=== PATIENT | female | born 1990 | race American Indian/Alaskan Native ===

== ENCOUNTER 2022-03-21 13:59 | Outpatient (CLI) | payer MEDICAID ==
[2022-03-21 14:48] VITALS: BP 127/72
== END 2022-03-21 20:04 | disposition home or self-care (01) ==
LOC: TRG 13:59 → APU 13:59 → TRG 20:04
PROVIDERS: ATTEND Obstetrics & Gynecology
DX: O62.9 Abnormality of forces of labor, unspecified (principal); O48.0 Post-term pregnancy; Z3A.40 40 weeks gestation of pregnancy
CPT/HCPCS: 59025; Q0177

== ENCOUNTER 2022-03-22 20:36 | Outpatient (CLI) | payer MEDICAID ==
[2022-03-22 21:00] VITALS: BP 117/76
[2022-03-22] MEDS ORDERED: ACETAMINOPHEN W/CODEINE 300-30 MG TAB PO ONE (21:59)
== END 2022-03-22 22:28 | disposition home or self-care (01) ==
LOC: APU 20:36 → TRG 20:36
PROVIDERS: ATTEND Obstetrics & Gynecology
DX: O62.9 Abnormality of forces of labor, unspecified (principal); O48.0 Post-term pregnancy; O99.013 Anemia complicating pregnancy, third trimester; D62 Acute posthemorrhagic anemia; Z3A.40 40 weeks gestation of pregnancy

== ENCOUNTER 2022-03-24 09:48 | Inpatient (IN) | payer MEDICAID ==
[2022-03-24] MEDS ORDERED: TERBUTALINE 1 MG/1 ML INJ SUB-Q NR (09:54)
[2022-03-24] MEDS ORDERED: fentaNYL 100 MCG/2 ML INJ IV PRN (09:54)
[2022-03-24] MEDS ORDERED: OXYTOCIN 10 UNIT/1 ML INJ IM NR (09:54)
--- NOTE | 2022-03-24 09:57 | History and Physical Report ---
History of Present Illness Date of examination: 03/24/22 Chief complaint: Sent from office in labor History of present illness: EDC Calculations LMP: 03/21/2022 Past History : 3 Term Births: 0 Premature Births: 0 Living Children: 0 Para: 0 Mult. Births: 0 Prev : 0 Prev. attempt? 0 Aborta: 2 Elect. Ab: 1 Spont. Ab: 1 Ectopics: 0 # 1 Delivery date: 10/21/2009 Weeks Gestation: 6 Comments: suction d and c. # 2 Delivery date: 04/14/2021 Delivery type: SAB Comments: misoprostol Past Medical History: Reviewed history from 07/26/2019 and no changes required: obesity Hyperlipidemia Asthma Past Surgical History: Reviewed history from 11/19/2014 and no changes required: D&C: Family History Summary: Reviewed history Last on 01/27/2021 and no changes required:07/28/2021 Daughter - Has Family History of Hyperlipidemia - father, PGM - Entered On: 11/19/2014 Risk Factors: Smoked Tobacco Use: Never smoker Smokeless Tobacco Use: Never Passive Smoke Exposure: no HIV High Risk Behavior: no Seatbelt Use: 100 % Alcohol Use: no Drug Use: no Past Medical History 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): D&C: Abnormal PAP: negative NOHEMY Exposure: negative Infertility: negative Uterine Anomaly: negative Uterine Surgery (not C/S): negative Social Hx: Patient is single Smoking History: CVD daily Infection History HIV Risk Eval: no Genetic History Congenital Heart Defect: Mom: no Dad: no Winston Disease: Mom: no Dad: no Thalassemia Mom: no Dad: no Neural Tube Defect Mom: no Dad: no Down's Syndrome Mom: no Dad: no Acosta-Sachs Mom: no Dad: no Sickle Cell Disease/Trait Mom: no Dad: no Hemophilia Mom: no Dad: no Muscular Dystrophy Mom: no Dad: no Cystic Fibrosis Mom: no Dad: no [place] Chorea Mom: no Dad: no Mental Retardation Mom: no Dad: no Fragile X Mom: no Dad: no Other Genetic/Chromosomal Disorder Mom: no Dad: no Child w/other defect Mom: no Dad: no Enviromental Exposures Xray Exposure: no Medication, drug, or alcohol use since LMP: no Chemical/Other Exposure: no Exposure to Cat Liter: no Hx of Parvovirus (Fifth Disease): no Occupational Exposure to Children: none Active Medications (reviewed today): ibuprofen 800 mg tablet (ibuprofen) Take 1 tablet by mouth every six hours TYLENOL () Current Allergies (reviewed today): No known allergies Past History Past Medical History: other (See HPI) Past Surgical History: other (See HPI) [employer] History: other (See HPI) Family/Genetic History: other (See HPI) Social history: other (See HPI) - Obstetrical History Expected Date of Delivery: 03/21/22 Actual Gestation: 40 Week(s) 3 Day(s) : 2 Para: 0 Hx # Term Pregnancies: 0 Number of Pregnancies: 0 Spontaneous Abortions: 1 Induced : 0 Number of Living Children: 0 Medications and Allergies Allergies Allergy/AdvReac Type Severity Reaction Status Date / Time No Known Allergies Allergy Verified 04/18/14 22:12 Home Medications Medication Instructions Recorded Confirmed Last Taken Type Albuterol Mdi (or & Nicu Only) 2 puff IH QID PRN #1 inhalation 04/19/14 Unknown Rx [ProAir HFA Inhaler] Amoxicillin [Trimox CAP] 500 mg PO Q8H #30 capsule 04/19/14 Unknown Rx Prednisone [Prednisone 10 mg 10 mg PO .TAPER #1 tab.ds.pk 04/19/14 Unknown Rx (6-Day Pack, 21 Tabs)] Review of Systems All systems: negative Gastrointestinal: other (CTX) - Physical Exam Breasts: Positive: normal Cardiovascular: Regular rate Lungs: Positive: Normal air movement Abdomen: Positive: normal appearance, soft Genitourinary (Female): Positive: normal external genitalia Vulva: both: normal Vagina: Positive: normal moisture Uterus: Positive: other (Gravid ) Anus/Rectum: Positive: normal perianal skin Extremities: Positive: normal Deep Tendon Reflex Grade: Normal +2 - Obstetrical FHR: category 1 Uterine Contraction Monitor Mode: Palpation Cervical Dilatation: 4 Cervical Effacement Percentage: 80 station: -2 Uterine Contraction Frequency (min): 5 Uterine Contraction Duration: 60-90 Uterine Contraction Pattern: Regular Uterine Tone Measurement Phase: Resting Uterine Contraction Intensity: Moderate Results All other labs normal. Assessment and Plan Pt presents to office in labor. GBS neg. Direct admit. admission orders in EMR. - Patient Problems (1) 40 weeks gestation of Current Visit: Yes Status: Acute Plan to address problem: Epidural PRN for pain Anticipate .
[2022-03-24] MEDS ORDERED: fentaNYL 100 MCG/2 ML INJ ONE (10:53)
[2022-03-24] MEDS ORDERED: LACTATED RINGERS 1,000 ML ONE (10:53)
[2022-03-24] MEDS ORDERED: ACETAMINOPHEN 325 MG TAB PO PRN (11:00)
[2022-03-24] MEDS ORDERED: CARBOPROST TROMETHAMINE 250 MCG/1 ML INJ IM PRN (11:00)
[2022-03-24] MEDS: LACTATED RINGERS 1,000 ML IV SCH ×4 (11:00→17:41)
[2022-03-24] MEDS ORDERED: ePHEDrine SULFATE 50 MG/1 ML INJ IV PRN (11:30)
[2022-03-24] MEDS ORDERED: LIDOCAINE (2%) 20 MG/1 ML VIAL 20 ML MDV INFILTRATI NR (11:30)
[2022-03-24] MEDS ORDERED: miSOPROStol 200 MCG TAB PR NR (11:30)
[2022-03-24] MEDS ORDERED: LOPERAMIDE 2 MG CAP PO PRN (12:00)
[2022-03-24] MEDS ORDERED: METHYLERGONOVINE MALEATE 0.2 MG/ML VIAL IM PRN (12:00)
[2022-03-24] MEDS ORDERED: NalbUPHINE 10 MG/1 ML INJ IV PRN (12:00)
[2022-03-24] MEDS ORDERED: OXYTOCIN DRIP 30 UNITS/500 ML BAG IV SCH ×3 (12:00→16:43)
[2022-03-24] MEDS ORDERED: ONDANSETRON 4 MG/2 ML INJ IV PRN (12:00)
--- NOTE | 2022-03-24 13:02 | Progress Note ---
Assessment and Plan IVF open for bolus, waiting on lab results for epidural. Plan of care discussed, pt agreed to AROM. will reexamine PRN. - Patient Problems (1) 40 weeks gestation of Current Visit: Yes Status: Acute Subjective - Subjective Date of service: 03/24/22 Principal diagnosis: IUP @ 40+3, laboring Interval history: EDC Calculations LMP: 03/21/2022 Past History : 3 Term Births: 0 Premature Births: 0 Living Children: 0 Para: 0 Mult. Births: 0 Prev : 0 Prev. attempt? 0 Aborta: 2 Elect. Ab: 1 Spont. Ab: 1 Ectopics: 0 # 1 Delivery date: 10/21/2009 Weeks Gestation: 6 Comments: suction d and c. # 2 Delivery date: 04/14/2021 Delivery type: SAB Comments: misoprostol Past Medical History: Reviewed history from 07/26/2019 and no changes required: obesity Hyperlipidemia Asthma Past Surgical History: Reviewed history from 11/19/2014 and no changes required: D&C: Family History Summary: Reviewed history Last on 01/27/2021 and no changes required:07/28/2021 Daughter - Has Family History of Hyperlipidemia - father, PGM - Entered On: 11/19/2014 Risk Factors: Smoked Tobacco Use: Never smoker Smokeless Tobacco Use: Never Passive Smoke Exposure: no HIV High Risk Behavior: no Seatbelt Use: 100 % Alcohol Use: no Drug Use: no Past Medical History 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): D&C: Abnormal PAP: negative NOHEMY Exposure: negative Infertility: negative Uterine Anomaly: negative Uterine Surgery (not C/S): negative Social Hx: Patient is single Smoking History: CVD daily Infection History HIV Risk Eval: no Genetic History Congenital Heart Defect: Mom: no Dad: no Winston Disease: Mom: no Dad: no Thalassemia Mom: no Dad: no Neural Tube Defect Mom: no Dad: no Down's Syndrome Mom: no Dad: no Acosta-Sachs Mom: no Dad: no Sickle Cell Disease/Trait Mom: no Dad: no Hemophilia Mom: no Dad: no Muscular Dystrophy Mom: no Dad: no Cystic Fibrosis Mom: no Dad: no [place] Chorea Mom: no Dad: no Mental Retardation Mom: no Dad: no Fragile X Mom: no Dad: no Other Genetic/Chromosomal Disorder Mom: no Dad: no Child w/other defect Mom: no Dad: no Enviromental Exposures Xray Exposure: no Medication, drug, or alcohol use since LMP: no Chemical/Other Exposure: no Exposure to Cat Liter: no Hx of Parvovirus (Fifth Disease): no Occupational Exposure to Children: none Active Medications (reviewed today): ibuprofen 800 mg tablet (ibuprofen) Take 1 tablet by mouth every six hours TYLENOL () Current Allergies (reviewed today): No known allergies Patient reports: movement normal, contractions Objective - Vital Signs Vital Signs: Vital Signs - 12hr 03/24/22 03/24/22 03/24/22 10:14 10:17 10:19 Temperature Pulse Rate 91 H 94 H 97 H Respiratory Rate O2 Sat by Pulse 97 94 97 Oximetry O2 Sat by Pulse Oximetry [ Bilateral Throughout] 03/24/22 03/24/22 03/24/22 10:24 10:29 10:34 Temperature Pulse Rate 95 H 84 84 Respiratory Rate O2 Sat by Pulse 96 98 95 Oximetry O2 Sat by Pulse Oximetry [ Bilateral Throughout] 03/24/22 03/24/22 03/24/22 10:37 10:39 10:44 Temperature Pulse Rate 102 H 96 H 88 Respiratory Rate O2 Sat by Pulse 92 96 98 Oximetry O2 Sat by Pulse Oximetry [ Bilateral Throughout] 03/24/22 03/24/22 03/24/22 10:46 10:49 10:54 Temperature 98.3 F Pulse Rate 90 84 Respiratory 20 Rate O2 Sat by Pulse 95 98 Oximetry O2 Sat by Pulse Oximetry [ Bilateral Throughout] 03/24/22 03/24/22 03/24/22 10:59 11:04 11:05 Temperature Pulse Rate 79 86 86 Respiratory Rate O2 Sat by Pulse 96 95 92 Oximetry O2 Sat by Pulse 98 Oximetry [ Bilateral Throughout] 03/24/22 03/24/22 03/24/22 11:09 11:11 11:14 Temperature Pulse Rate 85 83 82 Respiratory Rate O2 Sat by Pulse 94 94 95 Oximetry O2 Sat by Pulse Oximetry [ Bilateral Throughout] 03/24/22 03/24/22 03/24/22 11:16 11:19 11:23 Temperature Pulse Rate 79 89 83 Respiratory Rate O2 Sat by Pulse 94 96 94 Oximetry O2 Sat by Pulse Oximetry [ Bilateral Throughout] 03/24/22 03/24/22 03/24/22 11:24 11:29 11:32 Temperature Pulse Rate 80 84 83 Respiratory Rate O2 Sat by Pulse 96 96 93 Oximetry O2 Sat by Pulse Oximetry [ Bilateral Throughout] 03/24/22 03/24/22 03/24/22 11:34 11:39 11:44 Temperature Pulse Rate 77 79 90 Respiratory Rate O2 Sat by Pulse 96 97 96 Oximetry O2 Sat by Pulse Oximetry [ Bilateral Throughout] 03/24/22 03/24/22 03/24/22 11:49 11:58 12:03 Temperature Pulse Rate 93 H 91 H 85 Respiratory Rate O2 Sat by Pulse 97 98 97 Oximetry O2 Sat by Pulse Oximetry [ Bilateral Throughout] 03/24/22 03/24/22 03/24/22 12:08 12:13 12:18 Temperature Pulse Rate 90 94 H 84 Respiratory Rate O2 Sat by Pulse 96 96 97 Oximetry O2 Sat by Pulse Oximetry [ Bilateral Throughout] 03/24/22 03/24/22 03/24/22 12:23 12:28 12:33 Temperature Pulse Rate 82 87 92 H Respiratory Rate O2 Sat by Pulse 96 98 97 Oximetry O2 Sat by Pulse Oximetry [ Bilateral Throughout] 03/24/22 03/24/22 03/24/22 12:38 12:43 12:48 Temperature Pulse Rate 92 H 89 106 H Respiratory Rate O2 Sat by Pulse 98 96 95 Oximetry O2 Sat by Pulse Oximetry [ Bilateral Throughout] 03/24/22 03/24/22 12:49 12:53 Temperature Pulse Rate 107 H 105 H Respiratory Rate O2 Sat by Pulse 92 97 Oximetry O2 Sat by Pulse Oximetry [ Bilateral Throughout] - Exam Cervical Dilatation: 4 (AROM - light mec) Cervical Effacement Percentage: 90 station: -2 Uterine Contraction Frequency (min): 5-7 Uterine Contraction Duration: 90 Uterine Contraction Pattern: Regular Uterine Tone Measurement Phase: Contraction Uterine Contraction Intensity: Mild - Labs Labs: Laboratory Results - last 24 hr 03/24/22 03/24/22 Unknown Unknown Syphilis IgG/IgM Ab Nonreactive Blood Type O POSITIVE
[2022-03-24 13:22] LABS: Hematocrit 32.5 % (30.3-42.9); Hemoglobin 10.4 gm/dl (10.1-14.3); Mean Corpuscular HGB Conc 32 % (30-34); Mean Corpuscular Volume 82 fl (79-97); Platelet Count 302 K/mm3 (140-440); Red Blood Count 3.94 M/mm3 (3.65-5.03); Red Cell Distribution Width 16.3 % (13.2-15.2)
[2022-03-24] MEDS ORDERED: NALOXONE 0.4 MG/1 ML INJ IV PRN (13:54)
--- NOTE | 2022-03-24 13:56 | Anesthesia Consultation ---
Anesthesia Consult and Med Hx Date of service: 03/24/22 - Airway Anesthetic Teeth Evaluation: Good ROM Head & Neck: Adequate Mental/Hyoid Distance: Adequate Mallampati Class: Class II Intubation Access Assessment: Probably Good - Pulmonary Exam CTA: Yes - Cardiac Exam Cardiac Exam: RRR - Pre-Operative Health Status ASA Pre-Surgery Classification: ASA2 Proposed Anesthetic Plan: Epidural - Pulmonary Hx Smoking: No Hx Asthma: No Hx Respiratory Symptoms: No SOB: No COPD: No Home Oxygen Therapy: No Hx Pneumonia: No Hx Sleep Apnea: No - Cardiovascular System Hx Hypertension: No Hx Coronary Artery Disease: No Hx Heart Attack/AMI: No Hx Angina: No Hx Percutaneous Transluminal Coronary Angioplasty (PTCA): No Hx Cardia Arrhythmia: No Hx Pacemaker: No Hx Internal Defibrillator: No Hx Valvular Heart Disease: No Hx Heart Murmur: No Hx Peripheral Vascular Disease: No - Central Nervous System Hx Neuromuscular Disorder: No Hx Seizures: No CVA: No Hx Back Pain: No Hx Psychiatric Problems: No - Gastrointestinal Hx Ulcer: No Hx Gastroesophageal Reflux Disease: No - Endocrine Hx Renal Disease: No Hx End Stage Renal Disease: No Hx Cirrhosis: No Hx Liver Disease: No Hx Insulin Dependent Diabetes: No Hx Non-Insulin Dependent Diabetes: No Hx Thyroid Disease: No Hx Hypothyroidism: No Hx Hyperthyroidism: No - Hematic Hx Anemia: No Hx Sickle Cell Disease: No - Other Systems Hx Alcohol Use: No Hx Substance Use: No Hx Cancer: No Hx Obesity: No
--- NOTE | 2022-03-24 13:57 | Anesthesia Day of Surgery ---
Anesthesia Day of Surgery - Day of Surgery Patient Examined: Yes Patient H&P Reviewed: Yes Patient is NPO: Yes Beta Blockers: No Cardiac Clearance: No Pulmonary Clearance: No Liam's Test: N/A
--- NOTE | 2022-03-24 13:58 | Progress Note ---
Labor Epidural - Labor Epidural Start Time: 13:36 Stop Time: 13:44 Performed by:: ИРИНА CHASE Procedure: Epidural Requested for Labor Pain. H&P and PT Chart reviewed and consent obtained. Time out performed and the procedure was explained, all questions answered. Patient was placed in a sitting position with monitors applied. The PTs back was prepped and draped in usual sterile fashion. The Skin was localized with 3 mL of 1% lidocaine at L3-L4. A 17-gauge Touhy epidural needle was advanced to JANAE with saline at 7 cm and no blood/CSF was noted via epidural needle. Epidural catheter was advanced to 12 cm. There was negative aspiration for blood and CSF in the catheter and negative response to a test dose of 3 ml 1.5% lidocaine w/ Epi and a sterile dressing was applied Patient tolerated the procedure well and there were no immediate complications noted.
[2022-03-24] MEDS: ePHEDrine SULFATE 50 MG/1 ML INJ IV PRN ×2 (14:26→17:23)
[2022-03-24] MEDS: fentaNYL-BUPIV 2 MCG/ML-0.125% 200 MCG/100 ML BAG EPIDURAL SCH ×2 (14:45→22:18)
--- NOTE | 2022-03-24 17:44 | Progress Note ---
Assessment and Plan Pt with epidural at this time; SVE /-2, internal monitors placed, continue increasing pitocin, anticipate - Patient Problems (1) 40 weeks gestation of Current Visit: Yes Status: Acute Subjective - Subjective Date of service: 03/24/22 Principal diagnosis: IUP @ 40+3, laboring Interval history: EDC Calculations LMP: 03/21/2022 Past History : 3 Term Births: 0 Premature Births: 0 Living Children: 0 Para: 0 Mult. Births: 0 Prev : 0 Prev. attempt? 0 Aborta: 2 Elect. Ab: 1 Spont. Ab: 1 Ectopics: 0 # 1 Delivery date: 10/21/2009 Weeks Gestation: 6 Comments: suction d and c. # 2 Delivery date: 04/14/2021 Delivery type: SAB Comments: misoprostol Past Medical History: Reviewed history from 07/26/2019 and no changes required: obesity Hyperlipidemia Asthma Past Surgical History: Reviewed history from 11/19/2014 and no changes required: D&C: Family History Summary: Reviewed history Last on 01/27/2021 and no changes required:07/28/2021 Daughter - Has Family History of Hyperlipidemia - father, PGM - Entered On: 11/19/2014 Risk Factors: Smoked Tobacco Use: Never smoker Smokeless Tobacco Use: Never Passive Smoke Exposure: no HIV High Risk Behavior: no Seatbelt Use: 100 % Alcohol Use: no Drug Use: no Past Medical History 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): D&C: Abnormal PAP: negative NOHEMY Exposure: negative Infertility: negative Uterine Anomaly: negative Uterine Surgery (not C/S): negative Social Hx: Patient is single Smoking History: CVD daily Infection History HIV Risk Eval: no Genetic History Congenital Heart Defect: Mom: no Dad: no Winston Disease: Mom: no Dad: no Thalassemia Mom: no Dad: no Neural Tube Defect Mom: no Dad: no Down's Syndrome Mom: no Dad: no Acosta-Sachs Mom: no Dad: no Sickle Cell Disease/Trait Mom: no Dad: no Hemophilia Mom: no Dad: no Muscular Dystrophy Mom: no Dad: no Cystic Fibrosis Mom: no Dad: no Brody Chorea Mom: no Dad: no Mental Retardation Mom: no Dad: no Fragile X Mom: no Dad: no Other Genetic/Chromosomal Disorder Mom: no Dad: no Child w/other defect Mom: no Dad: no Enviromental Exposures Xray Exposure: no Medication, drug, or alcohol use since LMP: no Chemical/Other Exposure: no Exposure to Cat Liter: no Hx of Parvovirus (Fifth Disease): no Occupational Exposure to Children: none Active Medications (reviewed today): ibuprofen 800 mg tablet (ibuprofen) Take 1 tablet by mouth every six hours TYLENOL () Current Allergies (reviewed today): No known allergies Patient reports: movement normal, contractions Objective - Vital Signs Vital Signs: Vital Signs - 12hr 03/24/22 03/24/22 03/24/22 10:14 10:17 10:19 Temperature Pulse Rate 91 H 94 H 97 H Respiratory Rate Blood Pressure O2 Sat by Pulse 97 94 97 Oximetry O2 Sat by Pulse Oximetry [ Bilateral Throughout] 03/24/22 03/24/22 03/24/22 10:24 10:29 10:34 Temperature Pulse Rate 95 H 84 84 Respiratory Rate Blood Pressure O2 Sat by Pulse 96 98 95 Oximetry O2 Sat by Pulse Oximetry [ Bilateral Throughout] 03/24/22 03/24/22 03/24/22 10:37 10:39 10:44 Temperature Pulse Rate 102 H 96 H 88 Respiratory Rate Blood Pressure O2 Sat by Pulse 92 96 98 Oximetry O2 Sat by Pulse Oximetry [ Bilateral Throughout] 03/24/22 03/24/22 03/24/22 10:46 10:49 10:54 Temperature 98.3 F Pulse Rate 90 84 Respiratory 20 Rate Blood Pressure O2 Sat by Pulse 95 98 Oximetry O2 Sat by Pulse Oximetry [ Bilateral Throughout] 03/24/22 03/24/22 03/24/22 10:59 11:04 11:05 Temperature Pulse Rate 79 86 86 Respiratory Rate Blood Pressure O2 Sat by Pulse 96 95 92 Oximetry O2 Sat by Pulse 98 Oximetry [ Bilateral Throughout] 03/24/22 03/24/22 03/24/22 11:09 11:11 11:14 Temperature Pulse Rate 85 83 82 Respiratory Rate Blood Pressure O2 Sat by Pulse 94 94 95 Oximetry O2 Sat by Pulse Oximetry [ Bilateral Throughout] 03/24/22 03/24/22 03/24/22 11:16 11:19 11:23 Temperature Pulse Rate 79 89 83 Respiratory Rate Blood Pressure O2 Sat by Pulse 94 96 94 Oximetry O2 Sat by Pulse Oximetry [ Bilateral Throughout] 03/24/22 03/24/22 03/24/22 11:24 11:29 11:32 Temperature Pulse Rate 80 84 83 Respiratory Rate Blood Pressure O2 Sat by Pulse 96 96 93 Oximetry O2 Sat by Pulse Oximetry [ Bilateral Throughout] 03/24/22 03/24/22 03/24/22 11:34 11:39 11:44 Temperature Pulse Rate 77 79 90 Respiratory Rate Blood Pressure O2 Sat by Pulse 96 97 96 Oximetry O2 Sat by Pulse Oximetry [ Bilateral Throughout] 03/24/22 03/24/22 03/24/22 11:49 11:58 12:03 Temperature Pulse Rate 93 H 91 H 85 Respiratory Rate Blood Pressure O2 Sat by Pulse 97 98 97 Oximetry O2 Sat by Pulse Oximetry [ Bilateral Throughout] 03/24/22 03/24/22 03/24/22 12:08 12:13 12:18 Temperature Pulse Rate 90 94 H 84 Respiratory Rate Blood Pressure O2 Sat by Pulse 96 96 97 Oximetry O2 Sat by Pulse Oximetry [ Bilateral Throughout] 03/24/22 03/24/22 03/24/22 12:23 12:28 12:33 Temperature Pulse Rate 82 87 92 H Respiratory Rate Blood Pressure O2 Sat by Pulse 96 98 97 Oximetry O2 Sat by Pulse Oximetry [ Bilateral Throughout] 03/24/22 03/24/22 03/24/22 12:38 12:43 12:48 Temperature Pulse Rate 92 H 89 106 H Respiratory Rate Blood Pressure O2 Sat by Pulse 98 96 95 Oximetry O2 Sat by Pulse Oximetry [ Bilateral Throughout] 03/24/22 03/24/22 03/24/22 12:49 12:53 12:58 Temperature Pulse Rate 107 H 105 H 101 H Respiratory Rate Blood Pressure O2 Sat by Pulse 92 97 98 Oximetry O2 Sat by Pulse Oximetry [ Bilateral Throughout] 03/24/22 03/24/22 03/24/22 13:03 13:08 13:13 Temperature Pulse Rate 88 102 H 91 H Respiratory Rate Blood Pressure O2 Sat by Pulse 99 97 96 Oximetry O2 Sat by Pulse Oximetry [ Bilateral Throughout] 03/24/22 03/24/22 03/24/22 13:18 13:23 13:28 Temperature Pulse Rate 98 H 97 H 103 H Respiratory Rate Blood Pressure O2 Sat by Pulse 97 97 96 Oximetry O2 Sat by Pulse Oximetry [ Bilateral Throughout] 03/24/22 03/24/22 03/24/22 13:31 13:33 13:38 Temperature Pulse Rate 102 H 101 H 92 H Respiratory Rate Blood Pressure O2 Sat by Pulse 94 94 96 Oximetry O2 Sat by Pulse Oximetry [ Bilateral Throughout] 03/24/22 03/24/22 03/24/22 13:40 13:43 13:44 Temperature Pulse Rate 98 H 95 H 95 H Respiratory Rate Blood Pressure 123/72 O2 Sat by Pulse 94 94 Oximetry O2 Sat by Pulse Oximetry [ Bilateral Throughout] 03/24/22 03/24/22 03/24/22 13:46 13:48 13:50 Temperature Pulse Rate 96 H 106 H 95 H Respiratory Rate Blood Pressure 123/73 112/55 123/64 O2 Sat by Pulse 95 Oximetry O2 Sat by Pulse Oximetry [ Bilateral Throughout] 03/24/22 03/24/22 03/24/22 13:52 13:53 13:54 Temperature 98.5 F Pulse Rate 103 H 107 H 107 H Respiratory 17 Rate Blood Pressure 129/76 135/63 O2 Sat by Pulse 98 Oximetry O2 Sat by Pulse Oximetry [ Bilateral Throughout] 03/24/22 03/24/22 03/24/22 13:56 13:58 14:00 Temperature Pulse Rate 93 H 100 H 97 H Respiratory Rate Blood Pressure 172/65 104/55 121/64 O2 Sat by Pulse 96 Oximetry O2 Sat by Pulse Oximetry [ Bilateral Throughout] 03/24/22 03/24/22 03/24/22 14:02 14:03 14:04 Temperature Pulse Rate 97 H 89 86 Respiratory Rate Blood Pressure 109/57 111/57 O2 Sat by Pulse 97 Oximetry O2 Sat by Pulse Oximetry [ Bilateral Throughout] 03/24/22 03/24/22 03/24/22 14:06 14:08 14:10 Temperature Pulse Rate 91 H 98 H 92 H Respiratory Rate Blood Pressure 99/50 89/44 78/37 O2 Sat by Pulse 96 Oximetry O2 Sat by Pulse Oximetry [ Bilateral Throughout] 03/24/22 03/24/22 03/24/22 14:12 14:13 14:14 Temperature Pulse Rate 94 H 90 85 Respiratory Rate Blood Pressure 87/50 94/51 O2 Sat by Pulse 96 Oximetry O2 Sat by Pulse Oximetry [ Bilateral Throughout] 03/24/22 03/24/22 03/24/22 14:16 14:18 14:20 Temperature Pulse Rate 90 97 H 90 Respiratory Rate Blood Pressure 96/48 90/46 81/37 O2 Sat by Pulse 95 Oximetry O2 Sat by Pulse Oximetry [ Bilateral Throughout] 03/24/22 03/24/22 03/24/22 14:22 14:23 14:25 Temperature Pulse Rate 92 H 87 102 H Respiratory Rate Blood Pressure 62/37 104/57 O2 Sat by Pulse 97 94 Oximetry O2 Sat by Pulse Oximetry [ Bilateral Throughout] 03/24/22 03/24/22 03/24/22 14:26 14:28 14:30 Temperature Pulse Rate 97 H 106 H 93 H Respiratory Rate Blood Pressure 100/56 104/59 97/54 O2 Sat by Pulse 99 Oximetry O2 Sat by Pulse Oximetry [ Bilateral Throughout] 03/24/22 03/24/22 03/24/22 14:32 14:33 14:34 Temperature Pulse Rate 102 H 102 H 98 H Respiratory Rate Blood Pressure 95/53 95/54 O2 Sat by Pulse 97 Oximetry O2 Sat by Pulse Oximetry [ Bilateral Throughout] 03/24/22 03/24/22 03/24/22 14:36 14:38 14:40 Temperature Pulse Rate 102 H 99 H 104 H Respiratory Rate Blood Pressure 94/56 96/57 100/55 O2 Sat by Pulse 98 Oximetry O2 Sat by Pulse Oximetry [ Bilateral Throughout] 03/24/22 03/24/22 03/24/22 14:42 14:43 14:44 Temperature Pulse Rate 103 H 102 H 102 H Respiratory Rate Blood Pressure 101/56 102/53 O2 Sat by Pulse 97 Oximetry O2 Sat by Pulse Oximetry [ Bilateral Throughout] 03/24/22 03/24/22 03/24/22 14:46 14:48 14:50 Temperature Pulse Rate 106 H 106 H 100 H Respiratory Rate Blood Pressure 105/57 112/53 O2 Sat by Pulse 97 Oximetry O2 Sat by Pulse Oximetry [ Bilateral Throughout] 03/24/22 03/24/22 03/24/22 14:53 14:58 15:00 Temperature Pulse Rate 103 H 94 H 95 H Respiratory Rate Blood Pressure O2 Sat by Pulse 98 96 94 Oximetry O2 Sat by Pulse Oximetry [ Bilateral Throughout] 03/24/22 03/24/22 03/24/22 15:03 15:08 15:13 Temperature Pulse Rate 96 H 98 H 99 H Respiratory Rate Blood Pressure 111/59 O2 Sat by Pulse 97 97 97 Oximetry O2 Sat by Pulse Oximetry [ Bilateral Throughout] 03/24/22 03/24/22 03/24/22 15:18 15:20 15:23 Temperature Pulse Rate 104 H 100 H 94 H Respiratory Rate Blood Pressure 164/120 O2 Sat by Pulse 97 98 Oximetry O2 Sat by Pulse Oximetry [ Bilateral Throughout] 03/24/22 03/24/22 03/24/22 15:28 15:33 15:35 Temperature Pulse Rate 98 H 95 H 100 H Respiratory Rate Blood Pressure 93/54 O2 Sat by Pulse 98 98 Oximetry O2 Sat by Pulse Oximetry [ Bilateral Throughout] 03/24/22 03/24/22 03/24/22 15:38 15:43 15:45 Temperature Pulse Rate 112 H 90 92 H Respiratory Rate Blood Pressure O2 Sat by Pulse 95 95 94 Oximetry O2 Sat by Pulse Oximetry [ Bilateral Throughout] 03/24/22 03/24/22 03/24/22 15:48 15:50 15:53 Temperature Pulse Rate 94 H 89 99 H Respiratory Rate Blood Pressure 95/53 O2 Sat by Pulse 96 94 97 Oximetry O2 Sat by Pulse Oximetry [ Bilateral Throughout] 03/24/22 03/24/22 03/24/22 15:56 15:58 16:03 Temperature 97.2 F L Pulse Rate 98 H 92 H Respiratory 16 Rate Blood Pressure 88/52 O2 Sat by Pulse 97 97 Oximetry O2 Sat by Pulse Oximetry [ Bilateral Throughout] 03/24/22 03/24/22 03/24/22 16:08 16:13 16:18 Temperature Pulse Rate 82 93 H 90 Respiratory Rate Blood Pressure O2 Sat by Pulse 97 97 97 Oximetry O2 Sat by Pulse Oximetry [ Bilateral Throughout] 03/24/22 03/24/22 03/24/22 16:19 16:23 16:28 Temperature Pulse Rate 87 90 87 Respiratory Rate Blood Pressure 110/55 O2 Sat by Pulse 96 95 Oximetry O2 Sat by Pulse Oximetry [ Bilateral Throughout] 03/24/22 03/24/22 03/24/22 16:29 16:33 16:34 Temperature Pulse Rate 86 89 88 Respiratory Rate Blood Pressure 101/56 O2 Sat by Pulse 94 95 Oximetry O2 Sat by Pulse Oximetry [ Bilateral Throughout] 03/24/22 03/24/22 03/24/22 16:36 16:38 16:43 Temperature Pulse Rate 90 87 86 Respiratory Rate Blood Pressure O2 Sat by Pulse 93 95 96 Oximetry O2 Sat by Pulse Oximetry [ Bilateral Throughout] 03/24/22 03/24/22 03/24/22 16:48 16:51 16:53 Temperature Pulse Rate 91 H 96 H 95 H Respiratory Rate Blood Pressure 98/57 O2 Sat by Pulse 96 94 96 Oximetry O2 Sat by Pulse Oximetry [ Bilateral Throughout] 03/24/22 03/24/22 03/24/22 16:56 16:58 17:03 Temperature Pulse Rate 101 H 102 H 100 H Respiratory Rate Blood Pressure O2 Sat by Pulse 91 96 97 Oximetry O2 Sat by Pulse Oximetry [ Bilateral Throughout] 03/24/22 03/24/22 03/24/22 17:05 17:08 17:11 Temperature Pulse Rate 99 H 93 H 110 H Respiratory Rate Blood Pressure 88/53 85/52 O2 Sat by Pulse 93 96 93 Oximetry O2 Sat by Pulse Oximetry [ Bilateral Throughout] 03/24/22 03/24/22 03/24/22 17:13 17:18 17:20 Temperature Pulse Rate 96 H 96 H 96 H Respiratory Rate Blood Pressure 85/50 O2 Sat by Pulse 97 96 Oximetry O2 Sat by Pulse Oximetry [ Bilateral Throughout] 03/24/22 03/24/22 03/24/22 17:23 17:28 17:33 Temperature Pulse Rate 108 H 99 H 101 H Respiratory Rate Blood Pressure 88/53 O2 Sat by Pulse 97 97 95 Oximetry O2 Sat by Pulse Oximetry [ Bilateral Throughout] 03/24/22 17:38 Temperature Pulse Rate 97 H Respiratory Rate Blood Pressure O2 Sat by Pulse 97 Oximetry O2 Sat by Pulse Oximetry [ Bilateral Throughout] - Exam Abdomen: Present: normal appearance, soft FHR: auscultation normal, category 1 Uterine Contraction Monitor Mode: Internal Cervical Dilatation: 5 Cervical Effacement Percentage: 90 station: -2 Uterine Contraction Pattern: Regular - Labs Labs: Abnormal Labs 03/24/22 Unknown WBC 11.5 H MCH 26 L RDW 16.3 H Laboratory Results - last 24 hr 03/24/22 03/24/22 03/24/22 13:20 Unknown Unknown WBC 11.5 H RBC 3.94 Hgb 10.4 Hct 32.5 MCV 82 MCH 26 L MCHC 32 RDW 16.3 H Plt Count 302 Syphilis IgG/IgM Ab Nonreactive SARS-CoV-2 (PCR) Negative Blood Type Antibody Screen 03/24/22 Unknown WBC RBC Hgb Hct MCV MCH MCHC RDW Plt Count Syphilis IgG/IgM Ab SARS-CoV-2 (PCR) Blood Type O POSITIVE Antibody Screen Negative
[2022-03-24] MEDS ORDERED: MINERAL OIL 30 ML ORAL LIQD PO PRN (22:00)
[2022-03-25] MEDS ORDERED: CALCIUM CARBONATE 500 MG TAB CHEW PO ONE (03:32)
--- NOTE | 2022-03-25 03:40 | Event Note ---
Date: 03/25/22 SVE /-2, pt uncomfortable and feeling contractions with epidural, anesthesia called for pain relief, plan for pitocin break with tums, will restart pitocin at 0400 and continue to monitor. Reassuring FHTs
--- NOTE | 2022-03-25 04:36 | Event Note ---
Date: 03/25/22 pt asking for c/s, discussed with patient that she is making slow progress but she has made it to 7cms w/o s/s infection, CAT 1 tracing. advised there is no indication for a c/s at this time. Attempted to discuss risk of c/s with patient but she was frequently sleeping during conversation. support person informed that c/s is major abdominal surgery, she would be at increased risk for infection, pain, blood transfusion and injury to surrounding organs. Epidural redose seems to have improved pain as patient is sleeping intermittently. She declined additional vaginal exams. Advised I will let Dr. Franco know she desires a c/s.
--- NOTE | 2022-03-25 04:50 | Event Note ---
Date: 03/25/22 Pt reports feeling pressure and need for BM. SVE 8.5/90/0; discussed option to continue pitocin for two more hours and reassess, pt agreed to continue laboring at this time. FHTs reassuring.
[2022-03-25] MEDS: fentaNYL-BUPIV 2 MCG/ML-0.125% 200 MCG/100 ML BAG EPIDURAL SCH (05:28)
--- NOTE | 2022-03-25 06:39 | Event Note ---
Date: 03/25/22 No change in SVE; temp 9.5, blood in boogie catheter bag noted; pt desires pitocin to stop at this time and section.
[2022-03-25] MEDS ORDERED: FAMOTIDINE 20 MG/2 ML INJ IV NR (06:52)
[2022-03-25] MEDS ORDERED: METOCLOPRAMIDE 10 MG/2 ML INJ IV NR (06:52)
[2022-03-25] MEDS ORDERED: BICITRA ORAL LIQD 30ML PO NR (06:52)
[2022-03-25] MEDS ORDERED: ceFAZolin/Water 2 GM/20 ML 2 GM/20 ML SYRINGE IV NR (07:00)
[2022-03-25] MEDS ORDERED: PHENYLEPHRINE/NS 1,000 MCG/10 ML SYRINGE (OR USE) IV ONE ×2 (07:24→08:49)
[2022-03-25] MEDS ORDERED: BUPIVACAINE/PF (0.5%) 5 MG/1 ML 30 ML VIAL INFILTRATI ONE (07:24)
[2022-03-25] MEDS ORDERED: ONDANSETRON 4 MG/2 ML INJ ONE (07:24)
[2022-03-25] MEDS ORDERED: LACTATED RINGERS 1,000 ML IV SCH (08:00)
--- NOTE | 2022-03-25 08:10 | Event Note ---
Date: 03/25/22 Indication for section discussed. Patient informed the risks of the surgery include bleeding possibly bleeding heavy enough to require blood transfusion, infection possible damage to bowel bladder ureter. All questions answered. Patient agrees to proceed
[2022-03-25] MEDS ORDERED: MORPHINE 4 MG/1 ML INJ IV PRN (10:05)
[2022-03-25] MEDS ORDERED: HYDROmorphone 1 MG/1 ML INJ IV PRN ×2 (10:05→12:00)
[2022-03-25] MEDS ORDERED: NALOXONE 0.4 MG/1 ML INJ IV PRN ×2 (10:05→12:00)
--- NOTE | 2022-03-25 10:07 | Operative Report ---
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 Meconium stained fluid female infant weight 8 pounds 5 ounces Apgars 7 at 1 minute and 7 at 5 minutes Specimen(s): Placenta Procedure: The patient was brought to the operating room. Her epidural was replaced in the operating room without any complications. She was then placed in left lateral tilt. Prepped and draped in the usual sterile manner. After testing for adequate anesthesia level, a Pfannenstiel incision was made. This incision was taken down to the fascia. The fascia was then nicked in the midline. This incision was extended out laterally with Laboy scissors. The fascia was then sharply and bluntly from the underlying rectus muscles. The rectus muscles were bluntly and sharply . The peritoneum was then entered with the capsule filling machine operator's fingers. This incision was spread vertically with care not to damage the bladder below. The Mitch self- retaining tractor was then placed without any difficulty. The bladder flap was then formed sharply and bluntly with Metzenbaum scissors. A transverse incision was made in lower uterine segment. This incision was extended laterally with the operators fingers. The amniotic sac was then entered bluntly with the capsule filling machine operator's fingers. The was delivered from the vertex position. Bulb suction on the mother's abdomen. Cord was double clamped and cut. The infant was then passed to the nursery personnel who were in attendance. The above scores were given by the nursery personnel. The placenta was then bluntly removed. The uterus was then externalized and wiped clean the remaining products. The uterine incision was closed in layers. The first incision was closed in a locking manner using 0 Vicryl. This was followed by imbricating stitch also with 0 Vicryl. This closure was hemostatic. The bladder flap was copiously irrigated and found to be hemostatic. The pelvis was copiously irrigated and found to be hemostatic. The uterus was then placed back to the patient's abdomen. Surgicel was placed along the uterine incision. The retractors were removed. The rectus muscles were inspected and found to be hemostatic. The fascia was then closed in a running manner using 0 Vicryl. This incision was hemostatic irrigation Bovie. The skin was reapproximated with 4-0 Vicryl subcuticularly. Dermabond was placed over the skin incision. The patient tolerated procedure well. Her urine was clear. The was admitted to the intensive care nursery for observation. The patient was accompanied to recovery room in good condition. Instrument count correct times 3.
--- NOTE | 2022-03-25 10:07 | Progress Note ---
Spinal Anesthesia Block - Spinal Anesthesia Block Start Time: 08:09 Stop Time: 08:14 Performed by:: ИРИНА CHASE Procedure: The patient was placed in a sitting position on the OR table and monitors applied. A timeout was performed immediately prior to the start of the procedure. The patient was Prepped and draped in a sterile fashion and the skin was localized with 3 mL 1% lidocaine at L[4]-L[5] interspace. An introducer was placed into the back between L4-L5 and a 25g spinal needle was advanced into the intrathecal space until clear, free flowing CSF was observed. 1.8cc of 0.75% hyperbaric bupivacaine + 0.5mcg Precedex was injected into the intrathecal space and the spinal needle was removed. The patient tolerated the procedure well and there were no immediate complications noted.
--- NOTE | 2022-03-25 10:08 | Progress Note ---
Regional Anesthesia Block - Regional Anesthesia Block Start Time: : Stop Time: :49 Performed By:: ИРИНА CHASE Procedure: During the pre-op interview the patient agreed to and signed a consent for a TAP block for post surgical pain management. After her C/S was completed a time out was performed prior to the start of the procedure. The Trans Abdominal Plane was identified bilaterally via ultrasound. The skin was prepped bilaterally with chlorhexidine and a 22g stimuplex needle was advanced to the area between the internal oblique muscle and the trans abdominal plane. Marcaine 0.25% 30mlwas injected under ultrasound guidance on the left and right side. Negative aspiration every 5mL, There was no change in the patients heart rate or rhythm and the patient tolerated the procedure well. No apparent complications were observed.
[2022-03-25] MEDS ORDERED: fentaNYL-BUPIV 2 MCG/ML-0.125% 200 MCG/100 ML BAG EPIDURAL SCH (11:00)
[2022-03-25] MEDS ORDERED: ALBUTEROL 8.5 GM MDI INHALATION IH PRN (11:33)
[2022-03-25] MEDS ORDERED: HYDROCORTISONE 25 MG RECTAL SUPP PR PRN (12:00)
[2022-03-25] MEDS ORDERED: PROMETHAZINE 25 MG RECT SUPP PR PRN (12:00)
[2022-03-25] MEDS ORDERED: LANOLIN/ZINC/DIMETHICONE (LANSINOH) 7 GM TP PRN (12:00)
[2022-03-25] MEDS ORDERED: WITCH HAZEL/ GLYCERIN PAD TP PRN (12:00)
[2022-03-25] MEDS ORDERED: ONDANSETRON 4 MG/2 ML INJ IV PRN ×2 (12:00)
[2022-03-25] MEDS ORDERED: PROMETHAZINE 25 MG TAB PO PRN (12:00)
[2022-03-25] MEDS ORDERED: oxyCODONE /ACETAMINOPHEN 5-325MG TAB PO PRN (12:00)
[2022-03-25] MEDS ORDERED: ALBUTEROL 2.5 MG/3 ML NEBU IH PRN (13:00)
[2022-03-25] MEDS ORDERED: OXYTOCIN DRIP 30 UNITS/500 ML BAG IV SCH (13:00)
[2022-03-25] MEDS ORDERED: SIMETHICONE 80 MG CHEW TAB PO PRN (13:00)
[2022-03-25] MEDS: D5W/LACTATED RINGERS 1,000 ML IV SCH ×2 (13:09→19:44)
[2022-03-25 13:57] LABS: Hematocrit 30.4 % (30.3-42.9); Hemoglobin 9.7 gm/dl (10.1-14.3)
[2022-03-25] MEDS: PRENATAL VIT27-FE FUMARATE-FOLIC ACID VIT TAB PO SCH (13:57)
[2022-03-25] MEDS: IBUPROFEN 600 MG TAB PO PRN ×2 (13:57→16:14)
[2022-03-25] MEDS: FERROUS SULFATE 325 MG TAB PO SCH (13:57)
[2022-03-25] MEDS: ceFAZolin/NS 1 GM/50 ML 1 GM/50 ML BAG IV SCH ×2 (16:14→23:32)
--- NOTE | 2022-03-25 16:33 | Progress Note ---
Assessment and Plan A: 31 yo status post primary c/s ~9hrs post op Pain unconolled - Patient Problems (1) delivery delivered Current Visit: Yes Status: Acute Plan to address problem: Continue postpatum care Pain medication adjusted, Motrin increased to 800mg, Percocet increased to 2 tabs. Advance diet as tolerated once boogie cath removed, encourage ambulation Subjective - Subjective Date of service: 03/25/22 Principal diagnosis: S/P Primary c/s ~9hrs POD0 Interval history: Pt in bed with complaints of Lower ABD pain and cramps, Percocet dose adjusted 2 tabs and notified nurse to give dose of dilaudid. Baby in NICU for observation. Patient reports: pain poorly controlled [place]: in NICU Objective - Vital Signs Latest vital signs: Vital Signs Temp Pulse Resp BP Pulse Ox Pulse Ox 03/25/22 11:26 91 H 18 138/71 97 03/25/22 10:42 97.7 F 03/25/22 10:35 85 16 120/70 97 03/25/22 10:21 94 H 16 116/69 97 03/25/22 10:05 97 H 12 111/64 96 03/25/22 09:50 107 H 22 112/54 96 03/25/22 09:45 99 H 17 114/56 95 03/25/22 09:40 104 H 17 109/55 94 03/25/22 09:35 97.9 F 107 H 17 101/48 94 03/25/22 09:34 97.9 F 03/25/22 07:32 98.7 F 98 03/25/22 07:30 121 H 120/75 03/25/22 07:21 125 H 96 03/25/22 07:16 128 H 98 03/25/22 07:11 121 H 96 03/25/22 07:06 125 H 95 03/25/22 07:04 124 H 94 03/25/22 07:01 117 H 97 03/25/22 06:56 122 H 95 03/25/22 06:51 121 H 96 03/25/22 06:49 112 H 94 03/25/22 06:46 118 H 96 03/25/22 06:41 113 H 98 03/25/22 06:39 110 H 93 03/25/22 06:36 116 H 98 03/25/22 06:34 99.5 F 03/25/22 06:31 117 H 97 03/25/22 06:26 118 H 98 03/25/22 06:21 119 H 98 03/25/22 06:16 122 H 97 03/25/22 06:11 120 H 95 03/25/22 06:10 119 H 94 03/25/22 06:06 116 H 95 03/25/22 06:04 116 H 92 03/25/22 06:01 117 H 98 03/25/22 05:56 114 H 94 03/25/22 05:51 117 H 93 03/25/22 05:46 118 H 98 03/25/22 05:41 121 H 93 03/25/22 05:36 117 H 93 03/25/22 05:31 120 H 100 03/25/22 05:27 124 H 93 03/25/22 05:26 117 H 98 03/25/22 05:21 119 H 98 03/25/22 05:16 117 H 98 03/25/22 05:11 119 H 97 03/25/22 05:06 120 H 98 03/25/22 05:04 124 H 90 03/25/22 05:01 117 H 98 03/25/22 04:56 120 H 100 03/25/22 04:51 117 H 98 03/25/22 04:46 117 H 98 03/25/22 04:41 125 H 97 03/25/22 04:36 125 H 97 03/25/22 04:31 115 H 98 03/25/22 04:26 119 H 96 03/25/22 04:21 117 H 97 03/25/22 04:16 110 H 97 03/25/22 04:11 112 H 97 03/25/22 04:06 111 H 97 03/25/22 04:01 111 H 98 03/25/22 03:56 111 H 98 03/25/22 03:51 115 H 98 03/25/22 03:46 120 H 97 03/25/22 03:41 113 H 98 03/25/22 03:36 117 H 96 03/25/22 03:31 113 H 97 03/25/22 03:28 98.6 F 03/25/22 03:26 113 H 98 03/25/22 03:21 112 H 98 03/25/22 03:16 115 H 96 03/25/22 03:15 114 H 94 03/25/22 03:11 116 H 97 03/25/22 03:06 121 H 98 03/25/22 03:05 110 H 140/77 03/25/22 03:01 127 H 98 03/25/22 02:56 124 H 98 03/25/22 02:51 121 H 95 03/25/22 02:46 117 H 98 03/25/22 02:41 119 H 98 03/25/22 02:36 116 H 97 03/25/22 02:34 111 H 123/64 03/25/22 02:31 112 H 95 03/25/22 02:26 108 H 97 03/25/22 02:21 112 H 98 03/25/22 02:19 114 H 92 03/25/22 02:16 109 H 98 03/25/22 02:11 110 H 99 03/25/22 02:06 107 H 97 03/25/22 02:04 102 H 128/67 03/25/22 02:01 108 H 96 03/25/22 01:56 99 H 98 03/25/22 01:51 100 H 97 03/25/22 01:46 114 H 86 03/25/22 01:41 111 H 97 03/25/22 01:36 107 H 98 03/25/22 01:35 110 H 94 03/25/22 01:31 113 H 98 03/25/22 01:26 109 H 99 03/25/22 01:21 108 H 98 03/25/22 01:18 111 H 90 03/25/22 01:16 97.9 F 109 H 98 03/25/22 01:11 110 H 98 03/25/22 01:06 115 H 97 03/25/22 00:55 103 H 96 03/25/22 00:54 115 H 86 03/25/22 00:50 95 H 99 03/25/22 00:45 100 H 97 03/25/22 00:40 110 H 96 03/25/22 00:35 110 H 112/65 97 03/25/22 00:30 104 H 96 03/25/22 00:25 105 H 96 03/25/22 00:24 107 H 94 03/25/22 00:20 106 H 96 03/25/22 00:15 104 H 96 03/25/22 00:10 104 H 98 03/25/22 00:05 106 H 97 03/25/22 00:04 103 H 121/74 03/25/22 00:00 111 H 96 03/24/22 23:55 111 H 96 03/24/22 23:50 107 H 97 03/24/22 23:45 99 H 96 03/24/22 23:40 108 H 96 03/24/22 23:35 101 H 96 03/24/22 23:34 107 H 94 03/24/22 23:30 110 H 97 03/24/22 23:25 109 H 90 03/24/22 23:20 101 H 96 03/24/22 23:19 100 H 109/61 94 03/24/22 23:15 102 H 96 03/24/22 23:10 106 H 96 03/24/22 23:05 98 H 97 03/24/22 23:04 96 H 117/64 03/24/22 23:00 103 H 96 03/24/22 22:55 99 H 97 03/24/22 22:50 103 H 96 03/24/22 22:45 109 H 96 03/24/22 22:40 102 H 96 03/24/22 22:35 104 H 97 03/24/22 22:34 103 H 118/67 03/24/22 22:33 99 H 93 03/24/22 22:30 97 H 97 03/24/22 22:25 118 H 96 03/24/22 22:20 108 H 105/58 95 03/24/22 22:17 98.5 F 03/24/22 22:15 105 H 96 03/24/22 22:10 107 H 97 03/24/22 22:09 105 H 94 03/24/22 22:05 105 H 96 03/24/22 22:03 101 H 97/55 03/24/22 22:00 101 H 96 03/24/22 21:55 100 H 96 03/24/22 21:50 106 H 103/59 95 03/24/22 21:45 106 H 96 03/24/22 21:40 107 H 97 03/24/22 21:38 104 H 94 03/24/22 21:35 104 H 95 03/24/22 21:34 100 H 98/56 03/24/22 21:32 105 H 94 03/24/22 21:30 107 H 96 03/24/22 21:25 100 H 97 03/24/22 21:20 102 H 97 03/24/22 21:19 103 H 109/57 94 03/24/22 21:15 103 H 98 03/24/22 21:10 109 H 97 03/24/22 21:05 100 H 103/53 96 03/24/22 21:04 103 H 93 03/24/22 20:59 114 H 96 03/24/22 20:54 103 H 96 03/24/22 20:49 101 H 95 03/24/22 20:48 105 H 100/57 03/24/22 20:44 107 H 95 03/24/22 20:39 106 H 97 03/24/22 20:34 105 H 101/55 96 03/24/22 20:28 100 H 97 03/24/22 20:23 103 H 98 03/24/22 20:18 112 H 97 03/24/22 20:13 100 H 97 03/24/22 20:08 91 H 97 03/24/22 20:03 98 H 97 03/24/22 19:58 110 H 98 03/24/22 19:53 90 97 03/24/22 19:49 91 H 105/56 03/24/22 19:48 89 98 03/24/22 19:47 108 H 93 03/24/22 19:43 100 H 98 03/24/22 19:38 97 H 99 03/24/22 19:35 100 H 104/51 03/24/22 19:33 100 H 100 03/24/22 19:28 100 H 100 03/24/22 19:23 100 H 98 03/24/22 19:22 97.3 F L 99 03/24/22 19:19 95 H 110/57 03/24/22 19:18 103 H 96 03/24/22 19:13 89 99 03/24/22 19:08 97 H 98 03/24/22 19:05 88 98/54 03/24/22 19:03 97 H 97 03/24/22 18:58 96 H 98 03/24/22 18:53 101 H 97 03/24/22 18:51 110 H 91 03/24/22 18:49 101 H 109/57 03/24/22 18:48 104 H 96 08/02/22 18:43 103 H 96 03/24/22 18:38 99 H 96 03/24/22 18:34 100 H 97/52 03/24/22 18:33 98 H 97 03/24/22 18:32 107 H 87 03/24/22 18:28 101 H 95 03/24/22 18:23 105 H 96 03/24/22 18:19 97.8 F 16 03/24/22 18:18 99 H 98/55 96 03/24/22 18:13 98 H 97 03/24/22 18:08 101 H 97 03/24/22 18:03 92 H 94/51 94 03/24/22 17:58 92 H 96 03/24/22 17:53 95 H 96 03/24/22 17:49 98 H 90/50 03/24/22 17:48 101 H 96 03/24/22 17:43 102 H 97 03/24/22 17:38 97 H 97 03/24/22 17:33 101 H 88/53 95 03/24/22 17:28 99 H 97 03/24/22 17:23 108 H 97 03/24/22 17:20 96 H 85/50 03/24/22 17:18 96 H 96 03/24/22 17:13 96 H 97 03/24/22 17:11 110 H 93 03/24/22 17:08 93 H 85/52 96 03/24/22 17:05 99 H 88/53 93 03/24/22 17:03 100 H 97 03/24/22 16:58 102 H 96 03/24/22 16:56 101 H 91 03/24/22 16:53 95 H 96 03/24/22 16:51 96 H 94 03/24/22 16:48 91 H 98/57 96 03/24/22 16:43 86 96 03/24/22 16:38 87 95 03/24/22 16:36 90 93 03/24/22 16:34 88 101/56 Intake and Output 03/25/22 03/25/22 03/25/22 06:59 14:59 22:59 Intake Total 84.867 2800 Output Total 1450 Balance 84.867 1350 Intake: IV 84.867 2800 PITOCin/NS 30 UNIT/500ML 84.867 30 units In 500 ml @ 4 mls/hr IV TITR [facility] Rx#: [id number] Output: Urine 1450 Indwelling Catheter 600 Other: Total, Output Amount 600 Estimated Blood Loss 1,052 - Exam Narrative Exam: Boogie catheter in placed, draining clear, yellow urine Breasts: Present: normal Cardiovascular: Present: Regular rate Lungs: Present: Normal air movement Abdomen: Present: soft, other (Redness noted Lower ABD) Uterus: Present: normal Extremities: Present: normal Incision: Present: normal, dry, intact, other (no drainage, no s/s of infection noted) - Labs Labs: Abnormal lab results 03/25/22 Range/Units 13:47 Hgb 9.7 L (10.1-14.3) gm/dl
[2022-03-25] MEDS: oxyCODONE /ACETAMINOPHEN 5-325MG TAB PO PRN (19:41)
[2022-03-25] MEDS ORDERED: MAGNESIUM HYDROXIDE (MOM) ORAL LIQD UDC PO PRN (22:00)
[2022-03-25] MEDS ORDERED: SENNOSIDES 8.6 MG TAB PO PRN (22:00)
[2022-03-26] MEDS: oxyCODONE /ACETAMINOPHEN 5-325MG TAB PO PRN ×2 (00:41→13:00)
[2022-03-26 00:44] LABS: Hematocrit 25.4 % (30.3-42.9); Hemoglobin 8.3 gm/dl (10.1-14.3)
[2022-03-26] MEDS: IBUPROFEN 800 MG TAB PO PRN ×2 (03:37→17:08)
--- NOTE | 2022-03-26 04:18 | Post Anesthesia Evaluation ---
- Post Anesthesia Evaluation Patient Participated: Yes Airway Patent: Yes Stable Respiratory Function: Yes Nausea/Vomiting: No Temp > 96.8F: Yes Pain Manageable: Yes Adequeate Hydration: Yes Anesthesia Complications: No Block Receding Appropriately: Yes
--- NOTE | 2022-03-26 09:09 | Progress Note ---
Assessment and Plan patient resting, reports pain well controlled. in NICU. H&H 8.3/25.45. will start FE supplementation. continue postop pathway. - Patient Problems (1) delivery delivered Current Visit: Yes Status: Acute Plan to address problem: advance diet and activity as tolerated shower today (2) Anemia associated with acute blood loss Current Visit: Yes Status: Acute Plan to address problem: fe and colace Subjective - Subjective Date of service: 03/26/22 Principal diagnosis: postop day #1 s/p Primary c/s Interval history: EDC Calculations LMP: 03/21/2022 Past History : 3 Term Births: 0 Premature Births: 0 Living Children: 0 Para: 0 Mult. Births: 0 Prev : 0 Prev. attempt? 0 Aborta: 2 Elect. Ab: 1 Spont. Ab: 1 Ectopics: 0 # 1 Delivery date: 10/21/2009 Weeks Gestation: 6 Comments: suction d and c. # 2 Delivery date: 04/14/2021 Delivery type: SAB Comments: misoprostol Past Medical History: Reviewed history from 07/26/2019 and no changes required: obesity Hyperlipidemia Asthma Past Surgical History: Reviewed history from 11/19/2014 and no changes required: D&C: Family History Summary: Reviewed history Last on 01/27/2021 and no changes required:07/28/2021 Daughter - Has Family History of Hyperlipidemia - father, PGM - Entered On: Risk Factors: Smoked Tobacco Use: Never smoker Smokeless Tobacco Use: Never Passive Smoke Exposure: no HIV High Risk Behavior: no Seatbelt Use: 100 % Alcohol Use: no Drug Use: no Past Medical History Surgery (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): D&C: Abnormal PAP: negative NOHEMY Exposure: negative Infertility: negative Uterine Anomaly: negative Uterine Surgery (not C/S): negative Social Hx: Patient is single Smoking History: CVD daily Infection History HIV Risk Eval: no Genetic History Congenital Heart Defect: Mom: no Dad: no [place] Disease: Mom: no Dad: no Thalassemia Mom: no Dad: no Neural Tube Defect Mom: no Dad: no Down's Syndrome Mom: no Dad: no Acosta-Sachs Mom: no Dad: no Sickle Cell Disease/Trait Mom: no Dad: no Hemophilia Mom: no Dad: no Muscular Dystrophy Mom: no Dad: no Cystic Fibrosis Mom: no Dad: no [place] Chorea Mom: no Dad: no Mental Retardation Mom: no Dad: no Fragile X Mom: no Dad: no Other Genetic/Chromosomal Disorder Mom: no Dad: no Child w/other defect Mom: no Dad: no Enviromental Exposures Xray Exposure: no Medication, drug, or alcohol use since LMP: no Chemical/Other Exposure: no Exposure to Cat Liter: no Hx of Parvovirus (Fifth Disease): no Occupational Exposure to Children: none Active Medications (reviewed today): ibuprofen 800 mg tablet (ibuprofen) Take 1 tablet by mouth every six hours TYLENOL () Current Allergies (reviewed today): No known allergies Patient reports: voiding normally, pain well controlled, ambulating normally, no dizzy ambulation, no flatus, no bowel movement, no nauseated [place]: in NICU Objective - Vital Signs Latest vital signs: Vital Signs Temp Pulse Resp BP BP Pulse Ox Pulse Ox 03/26/22 08:53 99 03/26/22 05:36 97.6 F 100 H 18 123/78 97 03/26/22 03:37 18 03/26/22 01:01 97.6 F 94 H 18 116/70 97 03/26/22 00:41 18 03/25/22 21:14 99.0 F 97 H 18 141/79 96 03/25/22 19:41 20 03/25/22 19:40 99 03/25/22 16:36 97.9 F 94 H 20 131/75 100 03/25/22 11:26 91 H 18 138/71 97 98 03/25/22 10:42 97.7 F 03/25/22 10:35 85 16 120/70 97 03/25/22 10:21 94 H 16 116/69 97 03/25/22 10:05 97 H 12 111/64 96 03/25/22 09:50 107 H 22 112/54 96 03/25/22 09:45 99 H 17 114/56 95 03/25/22 09:40 104 H 17 109/55 94 03/25/22 09:35 97.9 F 107 H 17 101/48 94 03/25/22 09:34 97.9 F Intake and Output 03/25/22 03/26/22 03/26/22 23:59 07:59 15:59 Intake Total 1192.917 120 Output Total 2200 400 Balance -1007.083 -280 Intake: IV 872.917 ANCEF/NS 1 GM/50 ML 1 gm 50 In 50 ml @ 100 mls/hr IV Q8H [facility] Rx#:[id number] D5lr 1,000 ml @ 125 mls/ 822.917 hr IV DIRECT [facility] Rx#: [id number] Oral 320 Intake, Free Water 120 Output: Urine 2200 400 Indwelling Catheter 1900 Void 300 400 Other: Total, Intake Amount 320 Total, Output Amount 300 400 - Exam Breasts: Present: normal Cardiovascular: Present: Regular rate Lungs: Present: Clear to auscultation, Normal air movement Abdomen: Present: normal appearance, soft Vulva: both: normal Uterus: Present: normal, firm, fundal height at umbilicus Extremities: Present: edema Deep Tendon Reflex Grade: Normal +2 Incision: Present: normal, dry, intact - Labs Labs: Abnormal lab results 03/25/22 03/26/22 Range/Units 13:47 00:22 Hgb 9.7 L 8.3 L (10.1-14.3) gm/dl Hct 25.4 L (30.3-42.9) %
[2022-03-26] MEDS: FERROUS SULFATE 325 MG TAB PO SCH ×3 (09:37→21:49)
[2022-03-26] MEDS: PRENATAL VIT27-FE FUMARATE-FOLIC ACID VIT TAB PO SCH (09:37)
[2022-03-26] MEDS ORDERED: TETANUS,DIPH,PERTUSS(ACELL) VACCINE 0.5 ML SYRINGE IM ONE (09:59)
[2022-03-26] MEDS ORDERED: MEASLES, MUMPS & RUBELLA 12,500 UNIT/0.5 ML VACCINE SUB-Q ONE (09:59)
[2022-03-26] MEDS: DOCUSATE SODIUM 100 MG CAP PO SCH ×2 (10:30→21:49)
[2022-03-27] MEDS ORDERED: TETANUS,DIPH,PERTUSS(ACELL) VACCINE 0.5 ML SYRINGE IM ONE (06:00)
[2022-03-27] MEDS: IBUPROFEN 800 MG TAB PO PRN (08:18)
--- NOTE | 2022-03-27 11:07 | Discharge Summary ---
Providers - Providers Date of Admission: 03/24/22 09:49 Date of discharge: 03/27/22 Attending physician: GENIA AGUIRRE 03/25/22 11:33 Consult to Painter And Decorator [CONS] Routine Reason For Exam: Primary care physician: GENIA AGUIRRE Hospitalization Reason for admission: active labor Delivery: Procedure: primary low transverse Episiotomy: none Laceration: none Incision: normal, dry, intact Other procedures: none complications: none Discharge diagnosis: IUP at term delivered [place] baby: female Hospital course: S: Pt doing well. Ambulating, voiding, and passing flatus okay. BC: Undecided. O: VSS. H/H 8.3/25.4, asymptomatic anemia of . Incision open to air, intact, no s/sx of infection or drainage noted. Fundus firm, minimal vaginal bleeding noted. A: 31 y.o. s/p primary . In good condition . P: Discharge home with instructions. Pt to schedule an incision check in the office in 1 week. Condition at discharge: Good Disposition: 01 HOME / SELF CARE / HOMELESS - Discharge Diagnoses (1) delivery delivered Status: Acute Plan - Discharge Medications Prescriptions: Ferrous Sulfate [Feosol 325 MG tab] 325 mg PO BID #60 tablet Ibuprofen [Motrin] 800 mg PO TID PRN #30 tablet PRN Reason: Pain oxyCODONE /ACETAMINOPHEN [Percocet 5/325 mg] 1 tab PO Q6HR PRN #20 tablet PRN Reason: Pain - Provider Discharge Summary Activity: routine, no sex for 6 weeks, no heavy lifting 4 weeks, no strenuous ex ercise Diet: routine Instructions: routine Additional instructions: [] Smoking cessation referral if applicable(refer to patient education folder for contact #) [] Refer to [facility]'s [facility] Booklet Call your doctor immediately for: * Fever > 100.5 * Heavy vaginal bleeding ( >1 pad per hour) * Severe persistent headache * Shortness of breath * Reddened, hot, painful area to leg or breast * Drainage or odor from incision. * Keep incision clean and dry at all times and follow doctor's instructions regarding bathing/showering - Follow up plan Follow up: GENIA AGUIRRE MD [Primary Care Provider] - 7 Days (- Congratulations on the of your baby girl!! - Thank you for allowing us to take care of you. - Please schedule your incision check in the office in 1 week. - Should you have any questions or concerns after discharge, please do not hesitate to call the office at . ) Forms: [facility] Discharge Summary
[2022-03-27 16:32] VITALS: BP 125/79
== END 2022-03-27 17:10 | disposition home or self-care (01) | DRG 765 ==
LOC: TRG 09:48 → LD 09:49 → TRG 10:27 → APU 03-25 08:03 → OB 03-25 10:58
PROVIDERS: ADMIT Obstetrics & Gynecology; ATTEND Obstetrics & Gynecology
PROC: 10D00Z1 Extraction of Products of Conception, Low, Open Approach (ICD-10-PCS; principal; 2022-03-25)
PROC: 3E0T3BZ Introduction of Anesthetic Agent into Peripheral Nerves and Plexi, Percutaneous Approach (ICD-10-PCS; 2022-03-25)
PROC: 3E0234Z Introduction of Serum, Toxoid and Vaccine into Muscle, Percutaneous Approach (ICD-10-PCS; 2022-03-27)
DX: O77.0 Labor and delivery complicated by meconium in amniotic fluid (principal); D62 Acute posthemorrhagic anemia; Z37.0 Single live birth; Z20.822 Contact with and (suspected) exposure to COVID-19; Z3A.40 40 weeks gestation of pregnancy; O99.284 Endocrine, nutritional and metabolic diseases complicating childbirth; O90.81 Anemia of the puerperium; Z23 Encounter for immunization; O99.52 Diseases of the respiratory system complicating childbirth; J45.909 Unspecified asthma, uncomplicated; E78.5 Hyperlipidemia, unspecified; O62.1 Secondary uterine inertia
CPT/HCPCS: 36415; 85014; 85018; 85027; 86592; 86850; 86900; 86901; 88307; 90715; G0378; J3490; J7060; J0690; J1170; J2370; J2405; J2590; J2765; J3010; J7120; J7121; U0003